=== PATIENT | female | born 1970 | race Caucasian/White ===

== ENCOUNTER → 2018-08-11 | Outpatient (CLI) | payer OTHER ==
[~2018-08-11] MED LIST: GADOBUTROL 10 ML VIAL IVP ONE
== END ==
LOC: FIMAGING 15:50
PROVIDERS: ATTEND Psychiatry & Neurology Neurology
DX: H53.9 Unspecified visual disturbance (principal); M54.12 Radiculopathy, cervical region; H53.2 Diplopia; M43.23 Fusion of spine, cervicothoracic region; M50.30 Other cervical disc degeneration, unspecified cervical region
CPT/HCPCS: A9585